=== PATIENT | male | born 1945 | race Caucasian/White ===

== ENCOUNTER 2016-10-22 14:41 | Inpatient (IN) | payer OTHER, MEDICARE ==
[~2016-10-22] VITALS: Ht 177.8 cm; Wt 59.0 kg
--- NOTE | 2016-10-22 14:41 | NUR ---
PT ARRIVED VIA EMS-REPORT REC'D.
[2016-10-22 15:10] LABS: IMMATURE GRANULOCYTES 0.4 % (0.0-1.0); MEAN CELL VOLUME 85.4 fL CALC (80.0-100.0); MEAN CORPUSCULAR HGB 29.6 pG CALC (26.0-32.0); MEAN CORPUSCULAR HGB CONC 34.7 g/L CALC (32.0-36.0); NEUT# 8.44 thou/uL (1.82-7.42); RED BLOOD COUNT 2.26 mill/uL (4.70-6.10); RED CELL DISTRI WIDTH 22.1 % (11.5-15.5)
[2016-10-22 15:26] LABS: HEMOGLOBIN 6.7 g/dl (14.0-18.0)
[2016-10-22 15:27] LABS: HEMATOCRIT 19.3 % (39.0-50.0)
[2016-10-22 15:29] LABS: ALBUMIN 2.8 g/dL (3.2-5.0); ALKALINE PHOSPHATASE 155 u/l (38-126); ANION GAP 18 (6-22 (CALC)); BILIRUBIN, TOTAL 2.8 mg/dL (0.0-1.4); BUN 11 mg/dL (8-23); BUN/CREATININE RATIO 13 (12-20 (CALC)); CALCIUM 8.3 mg/dL (8.4-10.2); CARBON DIOXIDE 25 mmol/l (22-30); CHLORIDE 97 mmol/l (95-108); CREATININE 0.8 mg/dL (0.7-1.3); ETHYL ALCOHOL 60 mg/dl (0-30); GFR > 60 ML/MIN (>=60 (CALC)); GFR FOR AFR.AMER. > 60 ML/MIN (>=60 (CALC)); GLUCOSE 115 mg/dL (82-115); INTERNATIONAL NORMALIZED RATIO 1.2 RATIO (0.7-1.3); PROTHROMBIN TIME 13.5 SECONDS (9.0-12.5); SGOT/AST 99 u/l (19-48); SGPT/ALT 50 u/l (11-66); SODIUM 137 mmol/l (137-146); TOTAL PROTEIN 7.6 g/dL (6.3-8.2)
[2016-10-22 15:41] LABS: MYOGLOBIN 48 ng/mL (0 - 121)
--- NOTE | 2016-10-22 16:18 | NUR ---
PT RESTS IN THE STRETCHER, NO DISTRESS. RECTAL EXAM DONE, SEEN NEGATIVE.
--- NOTE | 2016-10-22 17:22 | NUR ---
PT T&C'D, AWARE OF PENDING ADMISSION.
[2016-10-22 17:23] LABS: URINE BLOOD DIPSTICK NEGATIVE (NEGATIVE); URINE COLOR YELLOW; URINE GLUCOSE - DIPSTICK NEGATIVE (NEGATIVE); URINE KETONE TRACE mg/dL (NEGATIVE); URINE LEUK ESTERASE TRACE (NEGATIVE); URINE PROTEIN - DIPSTICK 30 mg/dL (NEG-TRACE); URINE UROBILINOGEN - DIPSTICK >=8.0 E.U./dL (0.2)
[2016-10-22 17:35] LABS: URINE BILIRUBIN - DIPSTICK MODERATE (NEGATIVE); URINE CLARITY CLOUDY; URINE NITRITE - DIPSTICK POSITIVE (Negative)
--- NOTE | 2016-10-22 17:35 | NUR ---
PT ARRIVED TO FLOOR VIA STRETCHER ACCOMPANIED BY DANICA RAMOS. PT DENIES PAIN. REPORTING OF CONCERNS ENCOURAGED. GENERALIZED WEAKNESS NOTED. FALL PRECAUTIONS DISCUSSED. PT ORIENTED TO ROOM AND EQUIPMENT. PLAN OF CARE DISCUSSED. CALL LIGHT REVIEWED AND IN REACH. PT STATES UNDERSTANDING.
[2016-10-22 17:36] LABS: BARBITURATES NEGATIVE (NEGATIVE); COCAINE NEGATIVE (NEGATIVE); METHADONE NEGATIVE (NEGATIVE); OXCYCODONE NEGATIVE (NEGATIVE); TETRAHYDROCANNABIONOL NEGATIVE (NEGATIVE); TRICYLIC ANTIDEPRESSANTS NEGATIVE (NEGATIVE); URINE BACTERIA MANY hpf; URINE SQUAMOUS EPITHELIAL CELL FEW EPI/hpf (0-FEW)
[2016-10-22 17:38] VITALS: BP 131/74
--- NOTE | 2016-10-22 17:42 | NUR ---
PT TAKEN TO ROOM 272, REPORT WAS TO SABRINA MISHRA.
[2016-10-22] MEDS ORDERED: GABAPENTIN300 MG PO (17:49)
[2016-10-22 20:31] VITALS: BP 110/62
--- NOTE | 2016-10-22 21:05 | NUR ---
1ST UNIT OF PRBC'S SPIKED BY AMNUEL MISHRA, INFUSING WITH NO COMPLICATIONS.
[2016-10-22 21:20] VITALS: BP 104/61
[2016-10-22 22:05] VITALS: BP 127/59
[2016-10-22 23:25] VITALS: BP 119/66
--- NOTE | 2016-10-22 23:27 | NUR ---
1ST UNIT OF PRBC COMPLETE, TOLERATED WELL.
--- NOTE | 2016-10-22 23:56 | NUR ---
2ND UNIT OF PRBC'S SPIKED BY MANUEL MISHRA, INFUSING WITH NO COMPLICATIONS.
[2016-10-23] VITALS (10 sets, daily range): BP systolic 107–157; BP diastolic 57–79
--- NOTE | 2016-10-23 03:09 | NUR ---
2ND UNIT OF PRVC'S COMPLETE, TOLERATED WELL.
--- NOTE | 2016-10-23 04:25 | NUR ---
3RD UNIT OF PRBC'S SPIKED BY MANUEL MISHRA, INFUSING WITH NO COMPLICATIONS.
--- NOTE | 2016-10-23 07:23 | NUR ---
BEDSIDE REPORT RECEIVED FROM ALAN WINTERS. PT SUPINE IN BED. DENIES PAIN. REPORTING OF CONCERNS ENCOURAGED. PLAN OF CARE DISCUSSED. FALL PRECAUTIONS REINFORCED. CALL LIGHT REVIEWED AND IN REACH. PT STATES UNDERSTANDING.
--- NOTE | 2016-10-23 07:40 | NUR ---
BLOOD TRANSFUSION COMPLETED AT THIS TIME. VSS. PT DENIES S/S OF REACTION. LUNGS SOUND CLEAR. WILL CONTINUE TO MONITOR.
--- NOTE | 2016-10-23 09:59 | NUR ---
PT UP TO BATHROOM ALONE, BATHROOM EMERGENCY CORD PULLED. TRAIL OF ESTEBAN COLORED LOOSE STOOL FROM BED TO BATHROOM. ROOM CLEANED. PT BATHED. FALL PRECAUTIONS AND CALL LIGHT USE REINFORCED AGAIN. PT STATES UNDERSTANDING.
[2016-10-23 13:33] LABS: ALBUMIN 2.6 g/dL (3.2-5.0); ALKALINE PHOSPHATASE 160 u/l (38-126); ANION GAP 16 (6-22 (CALC)); BILIRUBIN, TOTAL 5.6 mg/dL (0.0-1.4); BUN 12 mg/dL (8-23); BUN/CREATININE RATIO 14 (12-20 (CALC)); CALCIUM 7.8 mg/dL (8.4-10.2); CARBON DIOXIDE 26 mmol/l (22-30); CHLORIDE 98 mmol/l (95-108); CREATININE 0.9 mg/dL (0.7-1.3); GFR > 60 ML/MIN (>=60 (CALC)); GFR FOR AFR.AMER. > 60 ML/MIN (>=60 (CALC)); GLUCOSE 180 mg/dL (82-115); POTASSIUM 3.9 mmol/l (3.5-5.1); SGOT/AST 82 u/l (19-48); SGPT/ALT 46 u/l (11-66); SODIUM 136 mmol/l (137-146); TOTAL PROTEIN 7.5 g/dL (6.3-8.2)
--- NOTE | 2016-10-23 15:28 | NUR ---
PT DENIES ANY COMPLAINTS AT THIS TIME. REPORTING OF CONCERNS ENCOURAGED. CALL LIGHT WITHIN REACH.
--- NOTE | 2016-10-23 19:10 | NUR ---
REPORT RECEIVED FROM DANICA STOUT,[facility]; PT.APPEARS STABLE AT THIS TIME; NO S/S OF DISTRESS AND DENIES ANY NEEDS AT THIS MOMENT; CALL LIGHT W/IN REACH
[2016-10-23 21:50] LABS: HEMATOCRIT 40.1 % (39.0-50.0); HEMOGLOBIN 13.7 g/dl (14.0-18.0); IMMATURE GRANULOCYTES 0.4 % (0.0-1.0); MEAN CELL VOLUME 85.5 fL CALC (80.0-100.0); MEAN CORPUSCULAR HGB 29.2 pG CALC (26.0-32.0); MEAN CORPUSCULAR HGB CONC 34.2 g/L CALC (32.0-36.0); NEUT# 8.77 thou/uL (1.82-7.42); RED BLOOD COUNT 4.69 mill/uL (4.70-6.10); RED CELL DISTRI WIDTH 20.6 % (11.5-15.5)
--- NOTE | 2016-10-23 23:58 | NUR ---
PT.HAS URINATED 300CC AT THIS POINT IN THE SHIFT; A QS BLADDER SCAN HAS BEEN ORDERED AND PERFORMED, SHOWING 572CC, PT.HAS NOW URINATED 75 ADDITIONAL CC'S
--- NOTE | 2016-10-24 00:15 | NUR ---
PT.UP TO USE URINAL AND IS HAS HAD AN INCONTINENT BM OF LIQUID BROWN STOOL; PT.PLACED IN SHOWER AND BEDDING CHANGED; UNABLE TO GET STOOL SAMPLE AT THIS TIME
[2016-10-24 04:46] VITALS: BP 117/73
[2016-10-24 05:06] LABS: HEMATOCRIT 37.2 % (39.0-50.0); IMMATURE GRANULOCYTES 0.3 % (0.0-1.0); MEAN CELL VOLUME 82.5 fL CALC (80.0-100.0); MEAN CORPUSCULAR HGB 28.8 pG CALC (26.0-32.0); MEAN CORPUSCULAR HGB CONC 34.9 g/L CALC (32.0-36.0); NEUT# 5.91 thou/uL (1.82-7.42); RED BLOOD COUNT 4.51 mill/uL (4.70-6.10); RED CELL DISTRI WIDTH 19.9 % (11.5-15.5)
[2016-10-24 05:37] LABS: ALBUMIN 2.5 g/dL (3.2-5.0); ALKALINE PHOSPHATASE 141 u/l (38-126); AMYLASE < 30 u/l (30-110); ANION GAP 13 (6-22 (CALC)); BILIRUBIN, TOTAL 3.8 mg/dL (0.0-1.4); BUN 11 mg/dL (8-23); BUN/CREATININE RATIO 14 (12-20 (CALC)); CALCIUM 7.4 mg/dL (8.4-10.2); CARBON DIOXIDE 25 mmol/l (22-30); CHLORIDE 100 mmol/l (95-108); CREATININE 0.8 mg/dL (0.7-1.3); GFR > 60 ML/MIN (>=60 (CALC)); GFR FOR AFR.AMER. > 60 ML/MIN (>=60 (CALC)); GLUCOSE 99 mg/dL (82-115); LIPASE 113 u/l (23-300); MAGNESIUM 1.7 mg/dL (1.6-2.3); POTASSIUM 3.4 mmol/l (3.5-5.1); SGOT/AST 69 u/l (19-48); SGPT/ALT 40 u/l (11-66); SODIUM 134 mmol/l (137-146); TOTAL PROTEIN 7.2 g/dL (6.3-8.2)
--- NOTE | 2016-10-24 06:05 | NUR ---
PT.MEDICATED W/PROTONIX AND REPOSITIONED, URINAL EMPTIED OF 100CC OF DARK URINE
[2016-10-24 07:44] VITALS: BP 115/63
--- NOTE | 2016-10-24 09:13 | NUR ---
ASSESSMENT IS COMPLETED: IV SITE IS FREE FROM, REDNESS OR EDEMA. SKIN IS YELLOW TINGED. CONTINUE TO OSBERVE AND MONITOR.
--- NOTE | 2016-10-24 12:45 | NUR ---
PT IS RELAXING IN BED WITH NO DISTRESS NOTED. IV SITE IS FREE FROM REDNESS OR EDEMA.
[2016-10-24 15:04] VITALS: BP 121/74
--- NOTE | 2016-10-24 16:45 | NUR ---
PT IS RELAXING IN BED WITH NO DISTRESS NOTED. IV SITE IS FREE FROM REDNESS OR EDEMA.
--- NOTE | 2016-10-24 19:30 | NUR ---
PATIENT SITTING UP IN RECLINER ON FIRST ROUNDS. PATIENT IS AWAKE ALERT AND ORIENTEDX3. PATIENT WITH IVF 1/2NS PATENT AND INFUSING ORDERED. NO COMPLAINTS AT THIS TIME. CALL LIGHT IN REACH. WILL CONT TO MONITOR.
[2016-10-24 20:20] VITALS: BP 103/68
--- NOTE | 2016-10-24 22:00 | NUR ---
PATIENT RESTING IN BED AT THIS TIME-PATIENT AWOKEN FOR NEURONTIN ORDERED. ABD IS DISTENDED-PATIENT STATES THAT HE CONT TO HAVE LOOSE BM'S-"NOTHING NEW". PATIENT WITH NO COMPLAINTS. SAFETY PRECAUTIONS REINFORCED. CALL LIGHT IN REACH. WILL CONT TO MONITOR.
--- NOTE | 2016-10-25 02:17 | NUR ---
PATIENT VOIDED 200CC OF DARK TIRSO URINE IN URINAL. NEW IV SITE STARTED TO RIGHT WRIST-#22 GAUGE WITH GOOD BLOOD RETURN. CALL LIGHT IN REACH. WILL CONT TO MONITOR.
[2016-10-25 03:51] VITALS: BP 113/62
--- NOTE | 2016-10-25 05:38 | NUR ---
PATIENT APPEARS SLEEPING WITH EYES CLOSED. CALL LIGHT IN REACH. WILL CONT TO MONITOR.
[2016-10-25 06:00] LABS: HEMATOCRIT 35.7 % (39.0-50.0); HEMOGLOBIN 12.7 g/dl (14.0-18.0); IMMATURE GRANULOCYTES 0.4 % (0.0-1.0); MEAN CELL VOLUME 82.6 fL CALC (80.0-100.0); MEAN CORPUSCULAR HGB 29.4 pG CALC (26.0-32.0); MEAN CORPUSCULAR HGB CONC 35.6 g/L CALC (32.0-36.0); NEUT# 5.2 thou/uL (1.82-7.42); RED BLOOD COUNT 4.32 mill/uL (4.70-6.10); RED CELL DISTRI WIDTH 19.7 % (11.5-15.5)
[2016-10-25 06:08] LABS: ALBUMIN 2.2 g/dL (3.2-5.0); ALKALINE PHOSPHATASE 131 u/l (38-126); ANION GAP 11 (6-22 (CALC)); BILIRUBIN, TOTAL 2.1 mg/dL (0.0-1.4); BUN 11 mg/dL (8-23); BUN/CREATININE RATIO 13 (12-20 (CALC)); CALCIUM 7.4 mg/dL (8.4-10.2); CARBON DIOXIDE 24 mmol/l (22-30); CHLORIDE 103 mmol/l (95-108); CREATININE 0.8 mg/dL (0.7-1.3); GFR > 60 ML/MIN (>=60 (CALC)); GFR FOR AFR.AMER. > 60 ML/MIN (>=60 (CALC)); GLUCOSE 99 mg/dL (82-115); SGOT/AST 55 u/l (19-48); SGPT/ALT 40 u/l (11-66); SODIUM 135 mmol/l (137-146); TOTAL PROTEIN 6.5 g/dL (6.3-8.2)
[2016-10-25 09:00] VITALS: BP 102/66
--- NOTE | 2016-10-25 09:00 | NUR ---
ASSESSMENT IS COMPLTED: IV SITE IS FREE FROM REDNESS OR EDEMA. ABD IS TAUNT. SKIN IS YELLOW IN APPEARANCE. CONTINUE TO OBSERVE AND MONITOR
[2016-10-25 15:02] VITALS: BP 112/68
[2016-10-25 19:30] VITALS: BP 96/57
--- NOTE | 2016-10-25 19:38 | NUR ---
PT IN BED WATCHING TV RESPIRAITONS EVEN AND UNLABORED. A/O X3 DENIES PAIN OR DISCOMFORT. URINAL AT BED SIDE. PO FLUIDS IN REACH. 1/2NS INFUSING TO LW WITH NO PROBLEM. ENCOURAGED TO USE CALL LIGHT, WILL CONTINUE TO MONITOR.
--- NOTE | 2016-10-26 | NUR ---
ASSISTED WITH REPOSITIONING TO LEFT SIDE, RESPIRATIONS EVEN AND UNLABORED. VOICES NO CONCERNS. URINAL IN REACH, CALL LIGHT IN REACH.
[2016-10-26 04:35] VITALS: BP 101/57
--- NOTE | 2016-10-26 05:00 | NUR ---
OOB TO STANDING SCALE WITH STANDBY ASSISTANCE, WEAK GAIT. WEIGHT OBTAINED AND BACK TO BED. CALL LIGHT IN REACH.
[2016-10-26 06:51] LABS: HEMOGLOBIN 12.5 g/dl (14.0-18.0); IMMATURE GRANULOCYTES 0.5 % (0.0-1.0); MEAN CELL VOLUME 84.5 fL CALC (80.0-100.0); MEAN CORPUSCULAR HGB 29.3 pG CALC (26.0-32.0); MEAN CORPUSCULAR HGB CONC 34.7 g/L CALC (32.0-36.0); NEUT# 4.53 thou/uL (1.82-7.42); RED BLOOD COUNT 4.26 mill/uL (4.70-6.10); RED CELL DISTRI WIDTH 20.2 % (11.5-15.5)
[2016-10-26 06:52] LABS: ANION GAP 11 (6-22 (CALC)); BUN 10 mg/dL (8-23); BUN/CREATININE RATIO 11 (12-20 (CALC)); CALCIUM 7.4 mg/dL (8.4-10.2); CARBON DIOXIDE 25 mmol/l (22-30); CHLORIDE 103 mmol/l (95-108); CREATININE 0.9 mg/dL (0.7-1.3); GFR > 60 ML/MIN (>=60 (CALC)); GFR FOR AFR.AMER. > 60 ML/MIN (>=60 (CALC)); GLUCOSE 120 mg/dL (82-115); POTASSIUM 3.3 mmol/l (3.5-5.1); SODIUM 135 mmol/l (137-146)
--- NOTE | 2016-10-26 07:40 | NUR ---
ASSESSMENT IS COMPLETED: SKIN IS SMALL YELLOW TINGE. IV SITE IS FREE FROM REDNESS OR EDEMA. CONTINUE TO OBSERVE AND MONITOR.
[2016-10-26] MEDS ORDERED: ALDACTONE25 MG PO (09:42)
[2016-10-26] MEDS ORDERED: VANTIN100 MG PO (09:42)
[2016-10-26] MEDS ORDERED: PROTONIX20 M1 PO (09:42)
[2016-10-26] MEDS ORDERED: MULTIVITAMI1 PO (09:42)
[2016-10-26] MEDS ORDERED: LASIX20 MG PO (09:42)
[2016-10-26] MEDS ORDERED: LYRICA75 MG PO (09:42)
[2016-10-26] MEDS ORDERED: THIAMINE50 MG PO (09:42)
--- NOTE | 2016-10-26 12:40 | NUR ---
PT IS SITTING UP IN BED WITH NO DISTRESS NOTED. IV SITE IS FREE FROM REDNESS OR EDEMA.
--- NOTE | 2016-10-26 15:39 | NUR ---
WAITING ON [facility] TO SCHEDULE TIME FOR DISCHARGE. CASE MANAGEMENT IS WORKING ON THIS
--- NOTE | 2016-10-26 16:40 | NUR ---
PT IS RELAXING IN THE CHAIR, NO DISTRESS NOTED. IV SITE IS FREE FROM REDNESS OR EDEMA.
--- NOTE | 2016-10-26 18:41 | NUR ---
PT'S DISCHARGE ON HOLD DUE TO HOME HEALTH CARE WITH [facility]. PT VERBALIZED UNDERSTANDING.
[2016-10-26 18:51] VITALS: BP 121/72
--- NOTE | 2016-10-26 23:00 | NUR ---
PT.URINAL EMPTIED OF DARK TIRSO URINE 100CC; PT.DENIES ANY FURTHER NEEDS AT THIS TIME; CALL LIGHT W/IN REACH
--- NOTE | 2016-10-26 23:19 | NUR ---
REPORT RECEIVED FROM ESHA DONALDSON; PT.WATCHING TV AND NO S/S OF DISTRESS AT THIS TIME; PT.DENIES ANY NEEDS AT THIS TIME
--- NOTE | 2016-10-27 01:30 | NUR ---
PT.SLEEPING AT THIS TIME W/TV ON; NO S/S OF DISTRESS AT THIS TIME; CALL LIGHT AND BST W/IN REACH.
[2016-10-27 03:35] VITALS: BP 101/58
--- NOTE | 2016-10-27 07:37 | NUR ---
REPORT RECEIVED FROM DANICA AMEZCUA. PT SLEEPING AT THIS TIME. CALL LIGHT WITHIN REACH. WILL CONTINUE TO MONITOR.
[2016-10-27 09:27] VITALS: BP 103/76
--- NOTE | 2016-10-27 11:40 | NUR ---
PT UP TO RESTROOM AT THIS TIME. TOLERATING ACTIVITY WELL.
[2016-10-27 16:00] VITALS: BP 122/79
--- NOTE | 2016-10-27 16:07 | NUR ---
PT AMBUALTED IN HALLWAYS AT THIS TIME. ASSISTED BY WALKER AND STAFF ON STANDBY. PT STEADY ON FEET. DENIES PAIN. TOLERATED ACTIVITY WELL.
[2016-10-27 19:34] VITALS: BP 106/66
--- NOTE | 2016-10-27 20:06 | NUR ---
PT.IN BED WATCHING TV AT THIS TIME; PT.BOOSTED/REPOSITIONED IN BED, DENIES ANY FURTHER NEEDS AT THIS TIME; CALL LIGHT AND BST W/IN REACH
--- NOTE | 2016-10-27 21:15 | NUR ---
CALLED TO CHECK PT.STATUS, HE SAID TO EXPLAIN TO PT.THAT WE WANT HIM TO GO TO REHAB FOR A FEW DAYS PER PT ASSESSMENT AND RECOMMENDATION; I DISCUSSED THIS W/PT.AND HE SEEMED TO UNDERSTAND AND AGREE
--- NOTE | 2016-10-28 03:00 | NUR ---
PT.SLEEPING SOUNDLY, NO S/S OF DISTRESS
[2016-10-28 04:43] VITALS: BP 108/60
[2016-10-28 05:23] LABS: INTERNATIONAL NORMALIZED RATIO 1.2 RATIO (0.7-1.3); PROTHROMBIN TIME 13.5 SECONDS (9.0-12.5)
[2016-10-28 05:29] LABS: HEMATOCRIT 35.1 % (39.0-50.0); HEMOGLOBIN 12.1 g/dl (14.0-18.0); IMMATURE GRANULOCYTES 0.5 % (0.0-1.0); MEAN CELL VOLUME 83.8 fL CALC (80.0-100.0); MEAN CORPUSCULAR HGB 28.9 pG CALC (26.0-32.0); MEAN CORPUSCULAR HGB CONC 34.5 g/L CALC (32.0-36.0); NEUT# 5.63 thou/uL (1.82-7.42); RED BLOOD COUNT 4.19 mill/uL (4.70-6.10); RED CELL DISTRI WIDTH 19.5 % (11.5-15.5)
[2016-10-28 05:46] LABS: ALBUMIN 2.2 g/dL (3.2-5.0); ALKALINE PHOSPHATASE 129 u/l (38-126); ANION GAP 10 (6-22 (CALC)); BILIRUBIN, TOTAL 1.8 mg/dL (0.0-1.4); BUN 10 mg/dL (8-23); BUN/CREATININE RATIO 12 (12-20 (CALC)); CALCIUM 7.9 mg/dL (8.4-10.2); CARBON DIOXIDE 24 mmol/l (22-30); CHLORIDE 105 mmol/l (95-108); CREATININE 0.8 mg/dL (0.7-1.3); GFR > 60 ML/MIN (>=60 (CALC)); GFR FOR AFR.AMER. > 60 ML/MIN (>=60 (CALC)); GLUCOSE 106 mg/dL (82-115); POTASSIUM 3.5 mmol/l (3.5-5.1); SGOT/AST 68 u/l (19-48); SGPT/ALT 40 u/l (11-66); SODIUM 135 mmol/l (137-146); TOTAL PROTEIN 6.3 g/dL (6.3-8.2)
--- NOTE | 2016-10-28 07:12 | NUR ---
BEDSIDE REPORT RECEIVED FROM DANICA AMEZCUA. PT STATES ANTIVIPATION OF DISCHARGE TODAY. DISCHARGE PROCESS DISCUSSED. PLAN OF CARE DISCUSSED. CALL LIGHT REVIEWED AND IN REACH. PT STATES UNDERSTANDING.
--- NOTE | 2016-10-28 08:55 | NUR ---
PT WAS ON BED RESTING WITH HOB ELEVATED. SPO2 AT 92% ON ROOM AIR. STOOD UP INDEPENDENTLY. AMB WITH RW AND SBA FROM HIS ROOM TO THE END OF HALLWAY BACK TO HIS ROOM WITH NO SIGNS OF BALANCE INSTABILITY, SPO2 MAINTAINED. PT WAS LEFT COMFORTABLY BACK IN THE BED WITH CALL ATKINS BESIDE HIM. NO S/SX OF ADVERSE RXNS NOTED/REPORTED AT THE END OF TX.
[2016-10-28 09:39] VITALS: BP 120/72
== END 2016-10-28 10:03 | DRG 897 ==
LOC: ENPENDDIS → ED 14:41 → ED-I 16:40 → ED 17:09 → MS2 17:10
PROVIDERS: Emergency Medicine; Internal Medicine; ADMIT Internal Medicine; ATTEND Internal Medicine
PROC: 30233N1 Transfusion of Nonautologous Red Blood Cells into Peripheral Vein, Percutaneous Approach (ICD-10-PCS; principal; 2016-10-22)
PROC: 30233N1 Transfusion of Nonautologous Red Blood Cells into Peripheral Vein, Percutaneous Approach (ICD-10-PCS; 2016-10-22)
PROC: 30233N1 Transfusion of Nonautologous Red Blood Cells into Peripheral Vein, Percutaneous Approach (ICD-10-PCS; 2016-10-23)
PROC: 0W9G3ZX Drainage of Peritoneal Cavity, Percutaneous Approach, Diagnostic (ICD-10-PCS; 2016-10-25)
DX: F10.20 Alcohol dependence, uncomplicated (principal); G62.9 Polyneuropathy, unspecified; N39.0 Urinary tract infection, site not specified; D63.8 Anemia in other chronic diseases classified elsewhere; K70.11 Alcoholic hepatitis with ascites; B96.20 Unspecified Escherichia coli [E. coli] as the cause of diseases classified elsewhere; S80.872A Other superficial bite, left lower leg, initial encounter; S80.871A Other superficial bite, right lower leg, initial encounter; W57.XXXA Bitten or stung by nonvenomous insect and other nonvenomous arthropods, initial encounter
CPT/HCPCS: P9016; S0164

== ENCOUNTER 2018-07-24 16:10 | Emergency (ER) | payer OTHER ==
[~2018-07-24] VITALS: Ht 177.8 cm; Wt 56.0 kg
[~2018-07-24 16:10] MED LIST: ALDACTONE25 MG PO; GABAPENTIN300 MG PO; LASIX20 MG PO; LYRICA75 MG PO; MULTIVITAMI1 PO; PROTONIX20 M1 PO; THIAMINE50 MG PO; VANTIN100 MG PO
[2018-07-24] MEDS ORDERED: GABAPENTIN100 MG PO (16:57)
[2018-07-24 17:10] LABS: HEMATOCRIT 36.5 % (39.0-50.0); HEMOGLOBIN 12.1 g/dl (14.0-18.0); IMMATURE GRANULOCYTES 0.4 % (0.0-5.0); MEAN CELL VOLUME 83.3 fL CALC (80.0-100.0); MEAN CORPUSCULAR HGB 27.6 pG CALC (26.0-32.0); MEAN CORPUSCULAR HGB CONC 33.2 g/L CALC (32.0-36.0); NEUT# 5.14 thou/uL (1.82-7.42); RED BLOOD COUNT 4.38 mill/uL (4.70-6.10); RED CELL DISTRI WIDTH 18.8 % (11.5-15.5)
[2018-07-24 17:10] LABS: URINE BLOOD DIPSTICK TRACE-INTACT (NEGATIVE); URINE GLUCOSE - DIPSTICK NEGATIVE (NEGATIVE); URINE KETONE TRACE mg/dL (NEGATIVE); URINE LEUK ESTERASE NEGATIVE (NEGATIVE); URINE NITRITE - DIPSTICK NEGATIVE (Negative); URINE PH 5.5 (4.5-8.0); URINE PROTEIN - DIPSTICK TRACE mg/dL (NEG-TRACE); URINE SPECIFIC GRAVITY >=1.030; URINE UROBILINOGEN - DIPSTICK 0.2 E.U./dL (0.2)
[2018-07-24 17:12] LABS: URINE BILIRUBIN - DIPSTICK NEGATIVE (NEGATIVE); URINE COLOR DK. YELLOW
[2018-07-24 17:22] LABS: ALKALINE PHOSPHATASE 101 u/l (38-126); BILIRUBIN, TOTAL 1.5 mg/dL (0.0-1.4); BUN 8 mg/dL (8-23); BUN/CREATININE RATIO 9 (12-20 (CALC)); CHLORIDE 109 mmol/l (95-108); CREATININE 0.9 mg/dL (0.7-1.3); GFR > 60 ML/MIN (>=60 (CALC)); GFR FOR AFR.AMER. > 60 ML/MIN (>=60 (CALC)); LIPASE 121 u/l (23-300); SGOT/AST 40 u/l (19-48); SODIUM 136 mmol/l (137-146)
[2018-07-24 17:24] LABS: INTERNATIONAL NORMALIZED RATIO 1.1 RATIO (0.7-1.3); PROTHROMBIN TIME 11.4 SECONDS (9.0-12.5)
[2018-07-24 17:26] LABS: ANION GAP 15 (6-22 (CALC)); CARBON DIOXIDE 16 mmol/l (22-30); POTASSIUM 4.4 mmol/l (3.5-5.1); TOTAL PROTEIN 7.9 g/dL (6.3-8.2)
[2018-07-24 19:10] VITALS: BP 163/74
== END 2018-07-24 19:06 | disposition short-term general hospital (02) | DRG 948 ==
LOC: ED 16:10
PROVIDERS: Emergency Medicine
DX: R18.8 Other ascites (principal); B19.9 Unspecified viral hepatitis without hepatic coma; K74.60 Unspecified cirrhosis of liver; R53.1 Weakness; R19.7 Diarrhea, unspecified; G62.9 Polyneuropathy, unspecified; F17.210 Nicotine dependence, cigarettes, uncomplicated